=== PATIENT | female | born 1995 | race Caucasian/White ===

== ENCOUNTER → 2017-01-01 | Outpatient (CLI) | payer OTHER ==
--- NOTE | 2017-01-01 14:46 | US ---
EXAMINATION TYPE: US thyroid st tissue head/neck DATE OF EXAM: 01/01/2017 2:29 PM COMPARISON: 04/28/2016 CLINICAL HISTORY: E04.1 6mo F/U thyroid nodule. GLAND SIZE: Right Lobe: 5.0 x 1.6 x 1.8cm cm Overall Parenchyma: heterogenous Left Lobe: 4.5 x 1.6 x 1.3 cm Overall Parenchyma: heterogeneous Isthmus Thickness: 0.4 cm NODULES RIGHT: # of nodules measured on right: 1. 0.5 X 0.3 x 0.2 cm cystic nodule at the lateral mid pole with well-defined margins; present with microcalcification. This nodule is wider than tall and shows no intranodular vascularity. Prior size: 0.4 x 0.4 x 0.3 cm 2. Scattered less than 5mm cysts seen. LEFT: # of nodules measured on left: 1 1. 0.8 X 0.4 x 0.6 cm cystic nodule at the lower pole with well-defined margins. This nodule is wi vira than tall and shows no intranodular vascularity. Prior size: 0.4 x 0.3 x 0.3 cm 2. Scattered less than 5mm cysts seen. ISTHMUS: # of nodules measured in the isthmus: 0 Bilateral neck scanned, no abnormal lymphadenopathy noted. Enlarged and diffusely heterogeneous thyroid tissue with scattered small bilateral cystic nodules. IMPRESSION: Multiple nonspecific subcentimeter nodules are again noted.
== END | disposition home or self-care (01) ==
LOC: RADUSWWP 14:12
PROVIDERS: ATTEND Family Medicine
DX: E04.2 Nontoxic multinodular goiter (principal)
CPT/HCPCS: 76536

== ENCOUNTER → 2017-02-02 | Outpatient (CLI) | payer OTHER ==
[2017-02-02 13:02] LABS: Basophils # (A) 0.1 k/uL (0-0.2); Basophils % (A) 1 %; CH 29.2; CHCM 33.2; Eosinophils # (A) 0.1 k/uL (0-0.7); Eosinophils % (A) 1 %; HCT 41.9 % (34.0-46.0); HGB 14.1 gm/dL (11.4-16.0); Luc # (Auto) 0.29; Luc % (Auto) 3; Lymphocytes # (A) 3.4 k/uL (1.0-4.8); Lymphocytes % (A) 33 %; MCH 29.7 pg (25.0-35.0); MCHC 33.7 g/dL (31.0-37.0); MCV 88.1 fL (80.0-100.0); Mean Platelet Volume 8.6; Monocytes # (A) 0.7 k/uL (0-1.0); Monocytes % (A) 7 %; Neutrophils # (A) 5.7 k/uL (1.3-7.7); Neutrophils % (A) 56 %; RBC 4.75 m/uL (3.80-5.40); RDW 13.6 % (11.5-15.5); WBC 10.2 k/uL (4.0-11.0); WBC (Perox) 10.57
[2017-02-02 13:13] LABS: ALT 28 U/L (9-52); AST 16 U/L (14-36); Alkaline Phosphatase 103 U/L (38-126); Anion Gap 11 mmol/L; Blood Urea Nitrogen 8 mg/dL (7-17); Calcium 9.8 mg/dL (8.4-10.2); Carbon Dioxide 26 mmol/L (22-30); Chloride 102 mmol/L (98-107); Cholesterol 219 mg/dL (<200); Glucose 94 mg/dL (74-99); HDL Cholesterol 39 mg/dL (40-60); Non-African American GFR(MDRD) >60 (>60 ml/min/1.73 sqM); Potassium 4.4 mmol/L (3.5-5.1); Sodium 139 mmol/L (137-145); Total Bilirubin 0.7 mg/dL (0.2-1.3); Total Protein 7.6 g/dL (6.3-8.2); Triglycerides 148 mg/dL (<150)
--- NOTE | 2017-02-02 16:02 | US ---
EXAMINATION TYPE: US pelvic complete DATE OF EXAM: 02/02/2017 1:14 PM COMPARISON: CT on PACS CLINICAL HISTORY: N92.6 IRREG MENSES. LMP prior to December 2016 menses was in September 2016; larger body habitus patient; not on oral contraceptives TECHNIQUE: Transabdominal (TA) Date of LMP: 01/10/2017 EXAM MEASUREMENTS: Uterus: 7.2 x 4.8 x 2.7 cm Endometrial Stripe: 0.7 cm Right Ovary: 3.6 x 2.1 x 2.0 cm Left Ovary: 2.9 x 2.1 x 1.6 cm TECHNOLOGIST IMPRESSION: wnl 1. Uterus: Anteverted 2. Endometrium: thin for day 25 LMP 3. Right Ovary: multifollicular with largest as thick walled cyst = 1.8 x 1.4 x 1.2cm 4. Left Ovary: multiple follicles of varying sizes Spectral, color and waveform doppler imaging shows good arterial and venous flow within the ovaries ; there is no evidence for ovarian torsion. 5. Bilateral Adnexa: wnl 6. Posterior cul-de-sac: free fluid noted = 1.4 x 0.9 x 1.0cm IMPRESSION: 1.8 cm thick-walled cyst within the right ovary. Short-term follow-up may be worthwhile.
[2017-02-02 18:37] LABS: Hemoglobin A1C 5.6 %
== END | disposition home or self-care (01) ==
LOC: RADUSWWP 12:43
PROVIDERS: ATTEND Family Medicine
DX: Z00.00 Encounter for general adult medical examination without abnormal findings (principal); N92.6 Irregular menstruation, unspecified; E28.2 Polycystic ovarian syndrome
CPT/HCPCS: 76856; 80053; 80061; 82306; 82626; 82672; 83002; 83036; 84403; 84439; 84443; 85025